=== PATIENT | male | born 2005 | race Caucasian/White ===

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

== ENCOUNTER 2024-07-19 09:44 | Emergency (ER) | payer SELFPAY ==
--- NOTE | ~2024-07-19 | XR_ITS ---
EXAMINATION: XR chest 2V DATE: 07/19/2024 10:02 INDICATION: Fever TECHNIQUE: PA and lateral views of the chest were obtained. COMPARISON: Chest radiograph dated 08/18/2014 FINDINGS: Small calcified nodule at the right upper lung zone consistent with old granulomatous disease. No oth er airspace opacities, pulmonary edema, pleural effusion or pneumothorax. The cardiomediastinal silho uette is normal. Visualized bones and soft tissues are unremarkable. IMPRESSION: 1. No acute cardiopulmonary disease. Reviewed, dictated and finalized at location A.
[2024-07-19 09:44] VITALS: BP 125/70; PULSE 108; RESP 14; TEMP 37.3; O2SAT 100
--- NOTE | 2024-07-19 09:51 | ED_ITS ---
HPI - General Adult General Chief complaint: Upper Respiratory Infection Stated complaint: fever Time Seen by Provider: 07/19/24 09:49 Source: patient Mode of arrival: ambulatory Limitations: no limitations History of Present Illness HPI narrative: 19 years old white male came to the ED by private car complaining of sore throat, nausea, general weakness started 4 days ago with temperature running up to 101. Patient did not have any antipyretic medication prior to arrival. He denies runny nose or sneezing or coughing or sick contact. Related Data Home Medications ?Medication ?Instructions ?Recorded ?Confirmed ?Last Taken ?Type venlafaxine 150 mg 150 mg PO DAILY 08/10/20 08/10/20 08/10/20 History capsule,extended release 24 hr Allergies Allergy/AdvReac Type Severity Reaction Status Date / Time No Known Allergies Allergy Verified 07/19/24 09:55 Review of Systems Review of Systems: All systems reviewed & are unremarkable except as noted in HPI and below PMFSH Past Medical History Medical History Patient denies medical problems Social History Social History Gender identity (if verbalized by the patient): Male Exam Narrative: General appearance: Well-developed, well-nourished Skin: Normal color Head: Normocephalic, nontraumatic Eyes: Clear conjunctiva ENT: Oropharyngeal erythema Neck: Supple, nontender Chest and respiratory: Airway patent, no respiratory distress, no accessory muscle use Heart: Regular rate/rhythm Abdomen: Soft, nontender, no organomegaly, quiet bowel sounds Vascular: Normal peripheral pulses, normal capillary refill. Musculoskeletal: Normal range of motion, nontender back Neurologic: Alert and oriented ?3, REFIN[employer] is normal as tested, no gross motor deficit Course Vital Signs Vital signs: Vital Signs Temperature 37.3 C 07/19/24 09:44 Pulse Rate 108 H 07/19/24 09:44 Respiratory Rate 14 07/19/24 09:44 Blood Pressure 125/70 07/19/24 09:44 Pulse Oximetry 100 07/19/24 09:44 Oxygen Delivery Room Air 07/19/24 09:44 Temperature 37.7 C H 07/19/24 10:46 Pulse Rate 101 H 07/19/24 10:46 Respiratory Rate 16 07/19/24 10:46 Blood Pressure 132/67 07/19/24 10:46 Pulse Oximetry 100 07/19/24 10:46 Oxygen Delivery Room Air 07/19/24 10:46 Medical Decision Making MDM Narrative Medical decision making narrative: patient presents with sore throat Differential diagnosis include strep throat, viral infection, Workup today positive for strep throat. Discharged on Z-Bryon Differential Diagnosis Differential Diagnosis: as above Vital Signs Vital Signs: Vital Signs Temperature 37.3 C 07/19/24 09:44 Pulse Rate 108 H 07/19/24 09:44 Respiratory Rate 14 07/19/24 09:44 Blood Pressure 125/70 07/19/24 09:44 Pulse Oximetry 100 07/19/24 09:44 Oxygen Delivery Room Air 07/19/24 09:44 Temperature 37.7 C H 07/19/24 10:46 Pulse Rate 101 H 07/19/24 10:46 Respiratory Rate 16 07/19/24 10:46 Blood Pressure 132/67 07/19/24 10:46 Pulse Oximetry 100 07/19/24 10:46 Oxygen Delivery Room Air 07/19/24 10:46 Lab Data Labs: Lab Results 07/19/24 07/19/24 Range/Units 09:49 10:10 Monoscreen Negative (Negative) Influenza A (RT-PCR) Negative (Negative) Influenza B (RT-PCR) Negative (Negative) RSV (RT-PCR) Negative (Negative) SARS-CoV-2 RNA (RT-PCR) Negative (Negative) Group A Strep (PCR) Detected A (Negative) Imaging Data Radiologist's impression: Impressions Chest X-Ray 07/19/24 10:06 IMPRESSION: 1. No acute cardiopulmonary disease. Critical Care Time Critical Care Time Critical Care Time: No Discharge Plan Discharge Clinical Impression: Strep sore throat Patient Disposition: Home, Self-Care Condition: Stable Instructions: Antibiotic Form, Strep Throat (DC) Additional Instructions: Return if symptoms are worsening , call your family physician for appointment, take Tylenol , ibuprofenas as needed for aches and pain, continue home me dications. Patient Language: Yakut Prescriptions: New azithromycin [Zithromax Z-Bryon] 250 mg tablet 250 mg PO DAILY PRN (Reason: COMMUNITY-ACQUIRED PNEUMONIA) 5 Days Qty: 6 0RF No Action venlafaxine 150 mg capsule,extended release 24hr 150 mg PO DAILY Follow-up/Referrals: Jose Hager MD [Primary Care Provider] - Stand Alone Forms: Work/School Release IP
[2024-07-19 10:20] LABS: Strep Group A RT-PCR DETECTED (Negative)
[2024-07-19 10:21] LABS: Monoscreen Negative (Negative); Negative Monotest Control Negative (Negative); Positive Monotest Control Positive (Positive)
[2024-07-19 10:36] LABS: Influenza A QL RT-PCR Negative (Negative); Influenza B QL RT-PCR Negative (Negative); RSV RNA, RT-PCR Negative (Negative); SARS-CoV-2 RNA PCR Negative (Negative)
[2024-07-19 10:46] VITALS: BP 132/67; PULSE 101; RESP 16; TEMP 37.7; O2SAT 100
--- OUTSIDE RECORDS SUMMARY | 2024-07-19 10:52 | XMS_ITS | Clinical Summary ---
Author Organization [facility] Address [address] [place] [address] Care Team Providers Care Corporate Event Planner Name Role Phone Jose Hager MD Primary Care Provider [phone] Allergies No known active allergies Medications hydrocortisone 1 % ointment Apply topically 2 (two) times daily. 0 0 Active Family History Medical History Relation Comments Diabetes Maternal Grandfather Diabetes Maternal Grandmother Diabetes Mother Relation Status Comments Maternal Grandfather Maternal Grandmother Mother Social History Tobacco Use Types Packs/Day Years Used Date Smoking Tobacco: Never Smokeless Tobacco: Never Alcohol Use Standard Drinks/Week Comments Never 0 (1 standard drink = 0.6 oz pur e alcohol) AUDIT-C Answer Date Recorded Frequency of Alcohol Consumption Never 12/14/2019 Average Number of Drinks Not on file 020 Frequency of Binge Drinking Not on file 12/03 Sex and Gender Information Value Date Recorded Sex Assigned at Not on file Legal Sex Male 10:43 AM CDT Gender Identity Not on file Sexual Orientation Not on file Last Filed Vital Signs Vital Sign Reading Time Taken Comments Blood Pressure 137/63 12/14/2019 11:15 AM CDT Pulse 77 12/14/2019 11:11 AM CDT Temperature 36.6 C (97.8 F) 12/14/2019 11:11 AM CDT Respiratory Rate 16 12/14/2019 11:11 AM CDT Oxygen Saturation 100% 12/14/2019 11:15 AM CDT Inhaled Oxygen Concentration - - Weight 52.6 kg (116 lb) 12/14/2019 11:11 AM CDT Height 168.9 cm (5' 6.5 ) 12/14/2019 11:11 AM CD T Body Mass Index 18.44 12/14/2019 11:11 AM CDT Plan of Treatment Health Maintenance Due Date Last Done Comments Annual Physical 01/10/2007 HPV Vaccines (1 - Male 3-dos e series) 01/10/2019 Meningococcal B Vaccine (1 o f 2 - Standard) 2020 Hepatitis C 01/10/2022 DTaP, Tdap and Td Vaccines ( 1 - Tdap) 01/10/2023 Hepatitis B Vaccines (1 of 3 - 19+ 3-dose series) 01/10/2023 COVID-19 Vaccine (1 - 2023-2 5 season) 2024 Influenza Adult (#1) 2024 Meningococcal Vaccine Aged Out No hanane windy eligible based on patient's age to complete this topic Pneumococcal Vaccine: Pediat rics (0 to 5 Years) and At-Risk Patients (6 to 64 Years) Aged Out No longer eligible b ased on patient's age to complete this topic RSV Immunizations Under 20 Months Aged Out No longer eligible based on patient's age to complete this topic Care Teams Corporate Event Planner Relationship Specialty Start Date End Date Jose Hager MD [address] [place] [address] PCP - General FAMILY PRACTICE 12/14/19
== END 2024-07-19 10:47 | disposition home or self-care (01) ==
PROVIDERS: Emergency Provider Emergency Medicine; PCP Family Medicine
DX: J02.0 Streptococcal pharyngitis (principal); Z20.822 Contact with and (suspected) exposure to COVID-19
CPT/HCPCS: 36415; 71046; 86308; 87637; 87651; 99283

== ENCOUNTER 2025-04-07 20:47 | Emergency (ER) | payer BC, SELFPAY ==
[2025-04-07 20:48] VITALS: BP 135/85; PULSE 81; RESP 20; TEMP 35.9; O2SAT 97
--- NOTE | 2025-04-07 20:55 | ED_ITS ---
HPI - Ear Problem General Chief complaint: Ear Stated complaint: ear pain Time Seen by Provider: 04/07/25 20:54 Source: patient Mode of arrival: ambulatory Limitations: no limitations History of Present Illness HPI Narrative: This is a 20-year-old with left ear pain after he was using a Q-tip do not hear a pop there was no blood on the Q-tip and no blood draining from the left ear canal there is some mild discomfort with popping sensation with no fever chills no shortness of breath no nausea vomiting no sinus congestion. MD Complaint: ear pain Location: left ear Duration: constant Severity: mild Relieving factors: nothing Exacerbating factors: nothing Related Data Home Medications ?Medication ?Instructions ?Recorded ?Confirmed ?Last Taken ?Type venlafaxine 150 mg 150 mg PO DAILY 08/10/2012/2308/10/20 History capsule,extended release 24 hr Allergies Allergy/AdvReac Type Severity Reaction Status Date / Time No Known Allergies Allergy Verified 07/19/24 09:55 Review of Systems Review of Systems: All systems reviewed & are unremarkable except as noted in HPI and below PMFSH Past Medical History Medical History Patient denies medical problems Social History Social History Gender identity (if verbalized by the patient): Male Exam Const: General: healthy appearing and no acute distress Nutritional Appearance: well nourished Orientation/consciousness: patient oriented x3 Limitations: no limitations HENMT: Head: normal to inspection Other: Mild erythema left ear canal with some redness on the tympanic membrane with no perforation. Eyes: Conjunctivae: conjunctivae normal Neck: Neck: normal visual inspection Resp: Effort & Inspection: normal respiratory effort Auscultation: clear to auscultation bilaterally Cardio: Rate: regular rate Rhythm: regular rhythm GI: GI Palp: Yes Soft to palpation Auscultation: normal bowel sounds Course Course Emergency Course: Medical decision making narrative: The patient was evaluated by myself in the emergency department. History obtained from the patient was an independent historian physical exam performed and witnessed by the nurse. Patient with some ear pain showing otitis externa since he does wear ear plugs while at work. Did use a Q-tip but did not attempt to place it into the ear canal there was no blood no drainage. Antibiotic ear drop was given while here in the emergency department. Repeat assessment: Patient doing well on repeat exam no acute distress Symptoms are stable since arrival to the emergency department Vitals are stable Patient agrees with discussion after shared medical decision-making agrees with discharge. All questions answered to the patient's satisfaction Advised follow-up with primary in 3 to 5 days. Vital Signs Vital signs: Vital Signs Temperature 35.9 C L 04/07/25 20:48 Pulse Rate 81 04/07/25 20:48 Respiratory Rate 20 04/07/25 20:48 Blood Pressure 135/85 04/07/25 20:48 Pulse Oximetry 97 04/07/25 20:48 Oxygen Delivery Room Air 04/07/25 20:48 Temperature 35.9 C L 04/07/25 20:48 Pulse Rate 78 04/07/25 21:24 Respiratory Rate 20 04/07/25 21:24 Blood Pressure 132/70 04/07/25 21:24 Pulse Oximetry 18 L 04/07/25 21:24 Oxygen Delivery Room Air 04/07/25 21:24 MDM Differential Diagnosis Differential Diagnosis: Your infection/sinusitis Critical Care Time Critical Care Time Critical Care Time: No Discharge Plan Discharge Clinical Impression: Otitis externa Qualifiers: Otitis externa type: unspecified type Chronicity: acute Laterality: left Qualified Code(s): H60.502 - Unspecified acute noninfective otitis externa, left ear Patient Disposition: Home Condition: Stable Instructions: Antibiotic Form, Ear Infection (ED) Additional Instructions: Advised patient to take medication as prescribed, can take Claritin daily x1 week and follow with primary. Patient Language: Citizen Of [place] Prescriptions: New Cortisporin-TC 3.3-3-10-0.5 mg/mL drops,suspension 4 drp EACH EAR TID 7 Days Qty: 10 0RF No Action venlafaxine 150 mg capsule,extended release 24hr 150 mg PO DAILY azithromycin [Zithromax Z-Bryon] 250 mg tablet 250 mg PO DAILY PRN (Reason: COMMUNITY-ACQUIRED PNEUMONIA) 5 Days Qty: 6 0RF Follow-up/Referrals: Jose Hager MD [Primary Care Provider, Internal Medicine] Stand Alone Forms: Work/School Release IP Time of Disposition: 21:07
[2025-04-07] MEDS: NEOMYCIN/POLYMYXIN/HYDROCORT OT SUSP 10 ML BTL (*BKC) 3 DROP EACH EAR (20:59)
--- NOTE | 2025-04-07 21:06 | PC.NURSE ---
PATIENT IS LAYING ON HIS RIGHT SIDE WITH MEDICATION TO LEFT EAR
--- OUTSIDE RECORDS SUMMARY | 2025-04-07 21:17 | XMS_ITS | Clinical Summary ---
Author Organization [facility] Address [address] [place] [address] Care Team Providers Care Preparation Operator Name Role Phone Jose Hager MD Primary Care Provider [phone] Allergies No known active allergies Medications hydrocortisone [...] 11:11 AM CDT Height 168.9 cm (5' 6.5) 12/14/2019 11:11 AM CD T Body Mass [...] 3-dose series) 01/10/2023 COVID-19 Vaccine (1 - 2024-2 6 season) 2025 Influenza Adult (#1) 2025 Hepatitis A Vaccines Aged Out No long er eligible based on patient's age to complete this topic Meningococcal Vaccine Aged Out No hanane windy eligible based on patient's age to complete this topic Pneumococcal Vaccine: Pediat rics (0 to 5 Years) and At-Risk Patients (6 to 49 Years) Aged Out No longer eligible b ased on patient's age to complete this topic RSV Immunizations Under 20 Months Aged Out No longer eligible based on patient's age to complete this topic Care Teams Preparation Operator Relationship Specialty Start Date End Date Jose Hager MD [address] [place] [address] PCP - General FAMILY PRACTICE 12/14/19
[2025-04-07 21:24] VITALS: BP 132/70; PULSE 78; RESP 20; O2SAT 18
== END 2025-04-07 21:24 | disposition home or self-care (01) ==
PROVIDERS: Emergency Provider Emergency Medicine; PCP Family Medicine
DX: H60.502 Unspecified acute noninfective otitis externa, left ear (principal)
CPT/HCPCS: 99283; A9270

== ENCOUNTER 2025-04-19 07:23 | Emergency (ER) | payer BC, SELFPAY ==
[2025-04-19 07:23] VITALS: BP 113/61; PULSE 99; RESP 18; TEMP 38.8; O2SAT 100; O2SAT 99
--- NOTE | 2025-04-19 07:31 | ED.URI ---
HPI - URI/Sore Throat General Chief Complaint: Upper Respiratory Infection Stated Complaint: fever Time Seen by Provider: 04/19/25 07:29 Source: patient Mode of arrival: ambulatory Limitations: no limitations History of Present Illness HPI Narrative: Patient is a 20-year-old male with a sore throat and upper respiratory congestion for the past week. Fever at home of 101 to 102. MD elicited complaint: fever, cough, sore throat, rhinorrhea, nasal congestion and sinus pain Pertinent past history: other (None) Onset (ago): week(s) (1) Consistency: constant Severity: moderate Pain scale (0-10): 1 Description of mucous: clear and yellow Able to tolerate fluids by mouth: Yes Exacerbating factors: exertion, speaking and leaning forward Relieving factors: nothing Context: other (Patient having upper respiratory complaints and a sore throat with fever for the past week) Associated symptoms: fever, rhinorrhea, nasal congestion, sore throat and cough Treatments prior to arrival: none Related Data Home Medications ?Medication ?Instructions ?Recorded ?Confirmed ?Last Taken ?Type venlafaxine 150 mg 150 mg PO DAILY 08/10/20 08/10/20 08/10/20 History capsule,extended release 24 hr Allergies Allergy/AdvReac Type Severity Reaction Status Date / Time No Known Allergies Allergy Verified 04/19/25 07:33 Review of Systems Review of Systems: All systems reviewed & are unremarkable except as noted in HPI and below Constitutional: Constitutional: Reports no additional constitutional complaints Eyes: Eyes: Reports no additional eye complaints ENT: Reports system reviewed and no additional complaints, except as documented Cardiovascular: Cardiovascular: Reports no additional cardiovascular complaints Respiratory: Respiratory: Reports no additional respiratory complaints Gastrointestinal: Gastrointestinal: Reports no additional gastrointestinal complaints Genitourinary: Genitourinary: Reports no additional male genitourinary complaints Musculoskeletal: Musculoskeletal: Reports no additional musculoskeletal complaints Integumentary/Breasts: Skin/Breast: Reports system reviewed and no additional complaints, except as docu Neurologic: Reports system reviewed and no additional complaints, except as documented Psychiatric: Psychiatric: Reports no additional psychiatric complaints Endocrine: Endocrine: Reports no additional endocrine complaints Hematologic/Lymphatic: Hematologic/Lymphatic: Reports no additional hematologic/lymphatic complaints Allergic/Immunologic: Allergic/Immunologic: Reports no additional allergic/immunologic complaints PMFSH Past Medical History Medical History Patient denies medical problems Social History Social History Gender identity (if verbalized by the patient): Male Exam Const: General: no acute distress and ill appearing Nutritional Appearance: well nourished Orientation/consciousness: patient oriented x3 Limitations: no limitations HENMT: Head: normal to inspection Ears: external ears normal Face/Nose/Sinus: Normal external nose present Other: Red oropharynx with a uvula sticking to the right tonsil with pus seen Eyes: Conjunctivae: conjunctivae normal Pupils: Equal, round and reactive pupils present EOM: EOMs intact bilaterally Direct Ophthalmoscopy: no photophobia Neck: Neck: normal visual inspection Chest: Chest palpation & inspection: normal inspection of the chest Resp: Effort & Inspection: normal respiratory effort and not labored Auscultation: clear to auscultation bilaterally and no crackles Cardio: Rate: regular rate Rhythm: regular rhythm Heart sounds: no murmurs GI: Inspection: non-distended GI Palp: Yes Soft to palpation and No Tenderness to palpation present (GI) Auscultation: normal bowel sounds : General: Yes bladder normal to palpation Back/Spine/Pelvis: Back: no CVA tenderness Skin: General skin exam: normal color Rashes: no rashes Wounds: no wounds Neuro: General: patient oriented x3 Cranial nerves: Yes Nystagmus not present Speech: normal speech Gait exam (Neuro): Normal gait present Extrem: General: normal to inspection Psych: Mental Status: mental status grossly normal Affect: normal affect Attitude: cooperative Course Vital Signs Vital signs: Vital Signs Temperature 38.8 C H 04/19/25 07:23 Pulse Rate 99 04/19/25 07:23 Respiratory Rate 18 04/19/25 07:23 Blood Pressure 113/61 04/19/25 07:23 Pulse Oximetry 99 04/19/25 07:23 Oxygen Delivery Room Air 04/19/25 07:23 Temperature 37.7 C H 04/19/25 08:38 Pulse Rate 89 04/19/25 08:38 Respiratory Rate 17 04/19/25 08:38 Blood Pressure 111/59 L 04/19/25 08:38 Pulse Oximetry 100 04/19/25 08:38 Oxygen Delivery Room Air 04/19/25 08:38 MDM Differential Diagnosis Differential Diagnosis: Patient is a 20-year-old male with upper respiratory complaints and a sore throat for the past week. Strep and COVID panel testing. Panels were all negative but we will treat due to the fact that his examination was positive for likely strep. Lab Data [facility] Lab Attestation statement: I personally reviewed the patient's lab results. Labs: Lab Results 04/19/25 04/19/25 Range/Units 07:32 07:35 Influenza A (RT-PCR) Negative (Negative) Influenza B (RT-PCR) Negative (Negative) RSV (RT-PCR) Negative (Negative) SARS-CoV-2 RNA (RT-PCR) Negative (Negative) Group A Strep (PCR) Not detected (Negative) Discharge Plan Discharge Clinical Impression: Pharyngitis Qualifiers: Pharyngitis/tonsillitis etiology: unspecified etiology Qualified Code(s): J02.9 - Acute pharyngitis, unspecified Patient Disposition: Home Condition: Stable Instructions: Antibiotic Form, Pharyngitis (ED) Patient Language: Mongolian Prescriptions: New amoxicillin-pot clavulanate [Augmentin] 500-125 mg tablet 1 tablet PO BID 10 Days Qty: 20 0RF No Action Cortisporin-TC 3.3-3-10-0.5 mg/mL drops,suspension 4 drp EACH EAR TID 7 Days Qty: 10 0RF venlafaxine 150 mg capsule,extended release 24hr 150 mg PO DAILY azithromycin [Zithromax Z-Bryon] 250 mg tablet 250 mg PO DAILY PRN (Reason: COMMUNITY-ACQUIRED PNEUMONIA) 5 Days Qty: 6 0RF Follow-up/Referrals: Jose Hager MD [Primary Care Provider, Internal Medicine] Stand Alone Forms: Work/School Release IP Time of Disposition: 08:32
--- OUTSIDE RECORDS SUMMARY | 2025-04-19 07:31 | XMS_ITS | Clinical Summary ---
Author Organization [facility] Address [address] [place] [address] Care Team Providers Care Inker And Opaquer Name Role Phone Jose Hager MD Primary Care Provider [phone] Allergies No known active allergies Medications hydrocortisone [...] age to complete this topic Care Teams Inker And Opaquer Relationship Specialty Start Date End Date Jose Hager MD [address] [place] [address] PCP - General FAMILY PRACTICE 12/14/19
[2025-04-19] MEDS: ONDANSETRON HCL ODT 4 MG TABLET PO (07:49)
[2025-04-19 08:00] VITALS: BP 116/75; PULSE 95; RESP 18; O2SAT 99
[2025-04-19 08:05] LABS: Strep Group A RT-PCR NOT DETECTED (Negative)
[2025-04-19 08:16] LABS: Influenza A QL RT-PCR Negative (Negative); Influenza B QL RT-PCR Negative (Negative); RSV RNA, RT-PCR Negative (Negative); SARS-CoV-2 RNA PCR Negative (Negative)
[2025-04-19 08:38] VITALS: BP 111/59; PULSE 89; RESP 17; TEMP 37.7; O2SAT 100
== END 2025-04-19 08:38 | disposition home or self-care (01) ==
PROVIDERS: Emergency Provider Emergency Medicine; PCP Family Medicine
DX: J02.9 Acute pharyngitis, unspecified (principal); Z20.822 Contact with and (suspected) exposure to COVID-19
CPT/HCPCS: 87637; 87651; 99283; A9270